=== PATIENT | male | born 1980 | race Caucasian/White ===

== ENCOUNTER 2016-11-26 11:13 | Emergency (ER) | payer MEDICAID, OTHER ==
[~2016-11-26] VITALS: Ht 170.2 cm; Wt 98.5 kg
[~2016-11-26 11:13] MED LIST: ACET325T33 PO; BENZ100C70 PO; ESCI10TA; IBUP-1542 PO; PROM6.25 PO; PSEU30TA38 PO; TRAZ50TA18
[2016-11-26 11:18] VITALS: Ht 170.2 cm; Wt 98.5 kg
--- NOTE | 2016-11-26 14:53 | ERD ---
ER Documentation Chief Complaint Date/Time DATE: 11/26/16 TIME: 14:44 Chief Complaint Pt CP, ST, and anxiety X 3 days, under alot of stress. HPI Patient is a 36-year-old male with a past medical history of anxiety and depression who presents to the ED with chest congestion, cough, sore throat and runny nose 3 days. He states that he also has been stressed at work. Denies homicidal or suicidal ideations. Denies fever or chills. He states that he has not taken any medication for his symptoms. Denies headache, dizziness, neck pain or neck stiffness. Denies abdominal pain, nausea, vomiting or diarrhea. Denies leg pain or leg swelling. Denies recent travel or recent surgeries. Denies chest pain ROS All systems reviewed and are negative except as per history of present illness. Medications Home Meds Active Scripts Acetaminophen* (Tylophen*) 500 Mg Capsule, 1 CAP PO Q6H Y for PAIN AND OR ELEVATED TEMP, #20 CAP Prov:ESPERANZA SINGH-Amparo 11/26/16 Cetirizine Hcl* (Zyrtec*) 10 Mg Capsule, 10 MG PO DAILY, #20 TAB.CHEW Prov:ESPERANZA SINGH-C 11/26/16 Benzonatate* (Tessalon Perle*) 100 Mg Capsule, 100 MG PO Q8H Y for COUGH for 14 Days, CAP Prov:ESPERANZA SINGH-C 11/26/16 Sodium Chloride (Saline Nasal Sigurd) 30 Ml Sigurd, 30 ML NS BID for 14 Days, SPRAY Prov:ESPERANZA SINGH-C 11/26/16 Acetaminophen* (Tylenol*) 325 Mg Tablet, 2 TAB PO Q8 Y for PAIN AND OR ELEVATED TEMP, #20 TAB Prov:VIKTORIYA RESENDEZ DO 03/17/16 Ibuprofen* (Motrin*) 600 Mg Tab, 600 MG PO Q8, #20 TAB Prov:DIPTI,VIKTORIYA DO 03/17/16 Pseudoephedrine Hcl* (Pseudoephedrine Hcl*) 30 Mg Tablet, 30 MG PO Q6 Y for CONGESTION, #30 TAB Prov:CHRISTOPH HAWKINS PA-C 07/29/15 Benzonatate* (Tessalon Perle*) 100 Mg Capsule, 100 MG PO Q8H Y for COUGH, #30 CAP Prov:CHRISTOPH HAWKINS PA-C 07/29/15 Promethazine w/Codeine* (Phenergan w/Codeine* Syrup) 5 Ml Syrup, 5 ML PO QHS Y for COUGH, #100 ML Prov:CHRISTOPH HAWKINS PA-C 07/29/15 Reported Medications Trazodone Hcl* (Trazodone Hcl*) 50 Mg Tablet 06/22/13 Escitalopram Oxalate* (Lexapro*) 10 Mg Tablet 06/22/13 Allergies Allergies: Coded Allergies: No Known Allergy (Unverified , 06/22/13) PMhx/Soc History of Surgery: Yes (RHINOPLASTY, HERNIA GROIN REPAIR, ANAL ABSCESS) Anesthesia Reaction: No Hx Neurological Disorder: No Hx Respiratory Disorders: No Hx Cardiac Disorders: No Hx Psychiatric Problems: Yes (DEPRESSION, ANXIETY, ADHD) Hx Miscellaneous Medical Probl: No Hx Alcohol Use: No Hx Substance Use: No Hx Tobacco Use: No Smoking Status: Never smoker FmHx Family History: No coronary disease, No diabetes, No other Physical Exam Vitals Vital Signs Date Time Temp Pulse Resp B/P Pulse Ox O2 Delivery O2 Flow Rate FiO2 11/26/16 11:18 98.9 93 18 137/94 93 Physical Exam GENERAL: Well-developed, well-nourished male. Appears in no acute distress. HEAD: Normocephalic, atraumatic. EYES: Pupils are equally reactive bilaterally. EOMs grossly intact. No conjunctival erythema. ENT: Moist mucous membranes. No uvula deviation. No kissing tonsils. No exudates. NECK: Supple. No lymphadenopathy or thyromegaly. No meningismus. negative kernig. negative brudinski. LUNG: Clear to auscultation bilaterally. No rhonchi, wheezing, rales or coarse breath sounds. HEART: Regular rate and rhythm. No murmurs, rubs or gallops. Extremities: Equal pulses bilaterally. No peripheral clubbing, cyanosis or edema. No unilateral leg swelling. NEUROLOGIC: Alert and oriented. Moving all four extremities. 5/5 strength in all extremities. Normal speech. Steady gait. SKIN: Normal color. Warm and dry. No rashes or lesions. Capillary refill < 2 seconds Procedures/MDM ER COURSE: I kept the patient and/or family informed of laboratory and diagnostic imaging results throughout the emergency room course. IMAGING STUDIES EKG performed, read by Dr Helms 91 bpm, normal sinus rhythm, normal axis, no acute ST segment changes, no T wave inversion [place] [id number] Radiology Main Line: [phone] DIAGNOSTIC IMAGING REPORT Patient: TESSA PALENCIA : 1980 Age: 36 Sex: M MR #: [id number] DOS: 11/26/16 1430 Ordering MD: ESPERANZA SINGH PA-C Location: [facility] Room/Bed: PROCEDURE: XR Chest AP portable CLINICAL INDICATION: Chest pain, cough TECHNIQUE: An AP portable radiograph of the chest was submitted. COMPARISON: 07/29/2015 FINDINGS: Support Hardware: None Cardiovascular: The heart is upper normal in size of the pulmonary vasculature appearing unremarkable. Lung Villanueva: The lung villanueva appear clear with no nodule, alveolar infiltrate, or interstitial prominence evident. Pleural Spaces: No pneumothorax or pleural effusion is identified. Osseous Structures: The osseous structures appear intact. Soft Tissues: The soft tissues appear unremarkable. IMPRESSION: Stable and unremarkable portable chest. Physician Arturo Date Time Electronically viewed and signed by Physician Arturo on 11/26/2016 15:07 RH/ CC: ESPERANZA SINGH PA-C MEDICAL DECISION MAKING: This is a 36 year old male who presents with cough, congestion, runny nose 3 days. Vital signs were reviewed. Patient is afebrile. Patient is not hypoxic. Patient is not toxic or ill-appearing. Patient likely has URI of viral etiology. His x-rays of by radiologist unremarkable. Low suspicion for pneumonia, PE, pneumothorax, ACS, epiglottitis, obstruction, TB, pertussis, meningitis, sepsis. DISCHARGE: At this time, patient is stable for discharge and outpatient management with no new complaints during the ER course. Patient was sent home with Tessalon Perles , Zyrtec, saline nasal spray and Tylenol and a note for work. Patient will be discharged home with instructions to recheck for new or worsening symptoms such as fever, nausea, weakness, LOC and to follow up with primary care in the next 1 -2 days. Patient was advised to return to the ER for any new or worsening symptoms. Plan was discussed and patient and/or family understands and agrees. Home instructions were given. Departure Diagnosis: Primary Impression: URI, acute Condition: Stable ESPERANZA SINGH PA-C November 26, 2016 14:53
--- NOTE | 2016-11-26 15:08 | RADRPT ---
PROCEDURE: XR Chest AP portable CLINICAL INDICATION: Chest pain, cough TECHNIQUE: An AP portable radiograph of the chest was submitted. COMPARISON: 07/29/2015 FINDINGS: Support Hardware: None Cardiovascular: The heart is upper normal in size of the pulmonary vasculature appearing unremarkabl e. Lung Fiore: The lung fiore appear clear with no nodule, alveolar infiltrate, or interstitial promi nence evident. Pleural Spaces: No pneumothorax or pleural effusion is identified. Osseous Structures: The osseous structures appear intact. Soft Tissues: The soft tissues appear unremarkable. IMPRESSION: Stable and unremarkable portable chest. Physician Arturo Date Time Electronically viewed and signed by Physician Arturo on 11/26/2016 15:07 /
[2016-11-26] MEDS ORDERED: CETI10CA PO (15:17)
[2016-11-26] MEDS ORDERED: BENZ100C70 PO (15:17)
[2016-11-26] MEDS ORDERED: SODI30SP2 NS (15:17)
[2016-11-26] MEDS ORDERED: ACET500C5 PO (15:18)
== END 2016-11-26 15:28 | disposition home or self-care (01) ==
LOC: FTE 11:13
DX: J06.9 Acute upper respiratory infection, unspecified (principal)
CPT/HCPCS: 71010; 93005; Z7502